=== PATIENT | male | born 2005 | race Caucasian/White ===

== ENCOUNTER 2023-09-28 22:51 | Emergency (ER) | payer BC, SELFPAY ==
[2023-09-28 23:03] VITALS: BP 128/86; PULSE 90; RESP 18; TEMP 36.9; O2SAT 100
--- NOTE | 2023-09-29 00:23 | ED.GENADULT ---
[facility] - General Adult General Chief complaint: Animal Bite Stated complaint: Dog bite Time Seen by Provider: 09/28/23 23:59 Source: patient Mode of arrival: ambulatory Limitations: no limitations History of Present Illness HPI narrative: This is a 18-year-old male who presents to the ED with chief complaint of dog bite injury that occurred just prior to arrival. Patient states that he was dog sitting for his friend's cousin. They entered the room and let the dog out. Reports that the dog was a [place] Jos[place] and immediately came after him and bit his right hand. Reports a small puncture wound to the right palmar thenar eminence. Denies any further site of pain or injury. States tetanus is up-to-date. States the dog is up-to-date on shots. Related Data Allergies Allergy/AdvReac Type Severity Reaction Status Date / Time No Known Allergies Allergy Unverified 09/28/23 23:10 Review of Systems Review of Systems: All systems as dictated in [facility] Past Medical History Medical History VIKKI (generalized anxiety disorder) Surgical History Surgical History History of appendectomy History of tonsillectomy and adenoidectomy Family History Family History Father Hypertension Social History Social History Smoking status: Never smoker Second hand tobacco smoke exposure: No Alcohol intake: never Substance use: never Substance use type: does not use Living arrangements: with family Occupation/Education: student Gender identity (if verbalized by the patient): Male Sexual Orientation (if Verbalized by the Patient): Straight or Heterosexual Exam Narrative: GENERAL: Well-appearing, well-nourished, and in no acute distress. HEAD: Normocephalic, atraumatic. EYES: PERRLA and EOMI. ENT: Nares clear, no rhinorrhea or epistaxis. Mucous membranes moist. Oropharynx without tonsillar hypertrophy exudate or other lesions. NECK: Supple. No adenopathy or masses. CHEST: No respiratory distress. Clear to auscultation. No wheezes rales or rhonchi HEART: Regular rate and rhythm. No murmur heard. Normal peripheral pulses. ABDOMEN: Soft, nontender, nondistended, normal active bowel sounds. MSK: Normal range of motion. No edema. SKIN: Small 1 cm shallow puncture wound to the right thumb thenar eminence. No bruising. Mild swelling. No active bleeding. NEURO: Alert and oriented x3. No focal deficits. PSYCH: Normal mood and affect. Course Vital Signs Vital signs: Vital Signs Temperature 98.4 F 09/28/23 23:03 Pulse Rate 90 09/28/23 23:03 Respiratory Rate 18 09/28/23 23:03 Blood Pressure 128/86 09/28/23 23:03 Pulse Oximetry 100 09/28/23 23:03 Oxygen Delivery Room Air 09/28/23 23:03 Temperature 98.4 F 09/28/23 23:03 Pulse Rate 84 09/29/23 01:01 Respiratory Rate 14 09/29/23 01:01 Blood Pressure 117/74 09/29/23 01:01 Pulse Oximetry 99 09/29/23 01:01 Oxygen Delivery Room Air 09/28/23 23:03 Medical Decision Making MDM Narrative Medical decision making narrative: This is a 18-year-old male who presents to the ED with chief complaint of dog bite injury to the right hand this evening. His tetanus status is up-to-date. The dog shots are up-to-date. Vitals are normal. Exam shows small superficial puncture wound to the right palmar thenar eminence. No other wounds noted. No bruising. Minimal tenderness. The wound was well cleaned and bandaged. Patient will be given prescription for Augmentin with first dose tonight. Strict instructions regarding keeping the area clean. Return precautions given and supportive measures from discussed. Patient is understanding and agreeable to plan for discharge and follow-up with PCP. Vital Signs Vital Signs
[2023-09-29] MEDS: AMOXICILLIN/CLAVULANATE K 875-125 MG TAB 1 TABLET PO (00:37)
[2023-09-29 01:01] VITALS: BP 117/74; PULSE 84; RESP 14; O2SAT 99
== END 2023-09-29 01:02 | disposition home or self-care (01) ==
PROVIDERS: Emergency Provider Physician Assistant; PCP Family Medicine
DX: S61.451A Open bite of right hand, initial encounter (principal); W54.0XXA Bitten by dog, initial encounter
CPT/HCPCS: 99283; A9270

== ENCOUNTER 2024-10-30 05:08 | Emergency (ER) | payer OTHER, SELFPAY ==
--- NOTE | ~2024-10-30 | CT_ITS ---
EXAMINATION: CT abdomen pelvis w con DATE: 10/30/2024 06:21 INDICATION: Upper abdominal pain, vomiting. History of appendectomy. TECHNIQUE: Computed tomography (CT) of the abdomen and pelvis was performed with 100 CC Omnipaque 350 intravenous contrast. Automated exposure control and iterative reconstruction technique were employe d. Exam dose: 295.35 mGy-cm total exam DLP. COMPARISON: 05/07/2017 abdominal ultrasound FINDINGS: The lung bases are clear. Normal heart size. No pericardial or pleural effusion. The liver, gallbladder, bile ducts, spleen, pancreas, pancreatic duct, and adrenal glands and kidneys are unremarkable. No urinary tract calculus or hydroureteronephrosis. The urinary bladder and prostate gland are unremarkable. Normal caliber of the abdominal aorta. No intraperitoneal or retroperitoneal or pelvic mass lesion or adenopathy or ascites. Status post appendectomy. There is air-fluid levels of the rectum and colon. No bowel dilatation, bowel wall thickening, pneuma tosis or intraperitoneal free air. The right testicle is in the inguinal canal. The left testicle is within the scrotal sac. Included skeletal structures are unremarkable. IMPRESSION: Status post appendectomy Air-fluid levels of the rectum and colon; no bowel obstruction or intraperitoneal free air. The findi ngs suggest enterocolitis or mild adynamic ileus Reviewed, dictated and finalized at [facility] Reviewed, dictated and finalized at [facility] P [employer] IMPRESSION: Status post appendectomy Air-fluid levels of the rectum and colon; no bowel obstruction or intraperitone al free air. The findings suggest enterocolitis or mild adynamic ileus
[2024-10-30 05:15] VITALS: BP 124/84; PULSE 110; RESP 16; TEMP 36.4; O2SAT 98
[2024-10-30 05:29] LABS: Hematocrit 44.6 % (42.0-52.0); Hemoglobin 16.4 g/dL (14.0-18.0); Mean Corpuscular HGB Conc 36.8 g/dl (32-36); Mean Corpuscular Hemoglobin 31.8 pg (26-34); Mean Corpuscular Volume 86.6 fl (80-100); Mean Platelet Volume 9.5 fl (7.4-10.4); Platelet Count Result 353 k/mm3 (150-375); Red Blood Count 5.15 M/mm3 (4.6-6.20); Red Cell Distribution Width 13.1 % (11.5-14.5); White Blood Count 20.2 K/mm3 (4.5-10.0)
--- NOTE | 2024-10-30 05:29 | ED_ITS ---
HPI - General Adult General Chief complaint: Abdominal Pain <Júnior Carty MD - Last Filed: 10/30/24 06:16> Stated complaint: abdominal pain, n/v <Júnior Carty MD - Last Filed: 10/30/24 06:16> Time Seen by Provider: 10/30/24 05:16 <Júnior Carty MD - Last Filed: 10/30/24 06:16> History of Present Illness HPI narrative: patient is a 19-year-old gentleman presents emergency department with chief complaint of abdominal pain nausea vomiting. Patient reports this evening started having multiple episodes of vomiting reports he down but unable to keep anything down reports he has prior history of an appendectomy. The patient rep orts he has pain throughout his abdomen reports that is not improved by anything patient reports no diarrhea <Júnior Carty MD - Last Filed: 10/30/24 06:16> Related Data Allergies/adverse reactions: Allergies Allergy/AdvReac Type Severity Reaction Status Date / Time No Known Allergies Allergy Unverified 02/17/24 14:46 <Júnior Carty MD - Last Filed: 10/30/24 06:16> Review of Systems Review of Systems: A 10 system review of systems was completed on the patient and is negative except for what is stated in the HPI. Nursing and ancillary documentation was reviewed. <Júnior Carty MD - Last Filed: 10/30/24 06:16> [facility] Past Medical History Medical History: Medical History VIKKI (generalized anxiety disorder) <Júnior Carty MD - Last Filed: 10/30/24 06:16> Surgical History Surgical History: Surgical History History of appendectomy History of tonsillectomy and adenoidectomy <Júnior Carty MD - Last Filed: 10/30/24 06:16> Family History Family History: Family History Father Hypertension <Júnior Carty MD - Last Filed: 10/30/24 06:16> Social History Social History: Social History Smoking status: Never smoker Second hand tobacco smoke exposure: No Alcohol intake: never Substance use: never Substance use type: does not use Living arrangements: with family Occupation/Education: student Gender identity (if verbalized by the patient): Male Sexual Orientation (if Verbalized by the Patient): Straight or Heterosexual <Júnior Carty MD - Last Filed: 10/30/24 06:16> Exam Narrative: GENERAL: Well-appearing, well-nourished, and in no acute distress. HEAD: Normocephalic, atraumatic. EYES: PERRLA and EOMI. ENT: Nares clear, no rhinorrhea or epistaxis. Mucous membranes moist. NECK: Supple. CHEST: Clear to auscultation. No respiratory distress. HEART: Regular rate and rhythm. No murmur heard. Normal peripheral pulses. ABDOMEN: Soft, nontender, nondistended, normal active bowel sounds. EXTREMITIES: Normal range of motion. No edema. SKIN: Warm, dry, no rash. NEURO: No focal deficits. Alert and oriented x3. PSYCH: Normal mood and affect. <Júnior Carty MD - Last Filed: 10/30/24 06:16> Course Course Emergency Course: Zych: 19-year-old male with nausea vomiting diarrhea x1 day who was signed out to me pending CT scan. CT scan showed gastroenteritis. Patient was re-evaluated and is now tolerating p.o.. Abdominal exam is benign vital signs are stable. Patient discharged with antiemetics and return precautions. <Carlos Hines MD - Last Filed: 10/30/24 10:48> Vital Signs Vital signs: Vital Signs Temperature 97.6 F 10/30/24 05:15 Pulse Rate 110 H 10/30/24 05:15 Respiratory Rate 16 10/30/24 05:15 Blood Pressure 124/84 10/30/24 05:15 Pulse Oximetry 98 10/30/24 05:15 Oxygen Delivery Room Air 10/30/24 05:15 Temperature 97.6 F 10/30/24 05:15 Pulse Rate 90 10/30/24 07:15 Respiratory Rate 18 10/30/24 07:15 Blood Pressure 129/85 10/30/24 07:15 Pulse Oximetry 99 10/30/24 07:15 Oxygen Delivery Room Air 10/30/24 05:15 <Júnior Carty MD - Last Filed: 10/30/24 06:16> Vital Signs Temperature 97.6 F 10/30/24 05:15 Pulse Rate 110 H 10/30/24 05:15 Respiratory Rate 16 10/30/24 05:15 Blood Pressure 124/84 10/30/24 05:15 Pulse Oximetry 98 10/30/24 05:15 Oxygen Delivery Room Air 10/30/24 05:15 Temperature 97.6 F 10/30/24 05:15 Pulse Rate 90 10/30/24 07:15 Respiratory Rate 18 10/30/24 07:15 Blood Pressure 129/85 10/30/24 07:15 Pulse Oximetry 99 10/30/24 07:15 Oxygen Delivery Room Air 10/30/24 05:15 <Carlos Hines MD - Last Filed: 10/30/24 10:48> Medical Decision Making MDM Narrative Medical decision making narrative: differential diagnosis includes gastroenteritis, gastritis, cholecystitis, pancreatitis laboratory studies were obtained on the patient showed white count of 20.2 electrolytes showed normal liver enzymes lipase was normal CT scan of the abdomen pelvis has been ordered <Júnior Carty MD - Last Filed: 10/30/24 06:16> Vital Signs Vital Signs: Vital Signs Temperature 97.6 F 10/30/24 05:15 Pulse Rate 110 H 10/30/24 05:15 Respiratory Rate 16 10/30/24 05:15 Blood Pressure 124/84 10/30/24 05:15 Pulse Oximetry 98 10/30/24 05:15 Oxygen Delivery Room Air 10/30/24 05:15 Temperature 97.6 F 10/30/24 05:15 Pulse Rate 90 10/30/24 07:15 Respiratory Rate 18 10/30/24 07:15 Blood Pressure 129/85 10/30/24 07:15 Pulse Oximetry 99 10/30/24 07:15 Oxygen Delivery Room Air 10/30/24 05:15 <Júnior Carty MD - Last Filed: 10/30/24 06:16> Vital Signs Temperature 97.6 F 10/30/24 05:15 Pulse Rate 110 H 10/30/24 05:15 Respiratory Rate 16 10/30/24 05:15 Blood Pressure 124/84 10/30/24 05:15 Pulse Oximetry 98 10/30/24 05:15 Oxygen Delivery Room Air 10/30/24 05:15 Temperature 97.6 F 10/30/24 05:15 Pulse Rate 90 10/30/24 07:15 Respiratory Rate 18 10/30/24 07:15 Blood Pressure 129/85 10/30/24 07:15 Pulse Oximetry 99 10/30/24 07:15 Oxygen Delivery Room Air 10/30/24 05:15 <Carlos Hines MD - Last Filed: 10/30/24 10:48> Lab Data Result diagrams: 10/30/24 05:23 10/30/24 05:23 <Júnior Carty MD - Last Filed: 10/30/24 06:16> Labs: Lab Results 10/30/24 10/30/24 Range/Units 05:23 07:30 WBC 20.2 H (4.5-10.0) K/mm3 RBC 5.15 (4.6-6.20) M/mm3 Hgb 16.4 (14.0-18.0) g/dL Hct 44.6 (42.0-52.0) % MCV 86.6 (80-100) fl MCH 31.8 (26-34) pg MCHC 36.8 H (32-36) g/dl RDW 13.1 (11.5-14.5) % Plt Count 353 (150-375) k/mm3 MPV 9.5 (7.4-10.4) fl Immature Gran % (Auto) Not Reportable Neut % (Auto) Not Reportable Lymph % (Auto) Not Reportable [place] % (Auto) Not Reportable Eos % (Auto) Not Reportable Baso % (Auto) Not Reportable Lymph # (Auto) Not Reportable [place] # (Auto) Not Reportable Eos # (Auto) Not Reportable Baso # (Auto) Not Reportable Abs Immat Gran (auto) Not Reportable Absolute Neuts (auto) Not Reportable Absolute Nucleated RBC Not Reportable Total Counted 100 Neutrophils % (Manual) 82 H (46-73) % Lymphocytes % (Manual) 17.0 L (18-44) % Monocytes % (Manual) 1 L (3-9) % Nucleated RBC % Not Reportable Abs Lymphs (Manual) 3.43 (1.1-4.5) K/mm3 Abs Monocytes (Manual) 0.20 (0.1-0.90) K/mm3 Atypical Lymphocytes Present Smudge Cells Present Platelet Estimate Increased (Adequate) Anisocytosis 1+ Schistocytes None seen Sodium 140 (137-145) mmol/L Potassium 3.6 (3.4-5.0) mmol/L Chloride 101 (98-107) mmol/L Carbon Dioxide 24 (22-30) mmol/L Anion Gap 15 H (4-12) mmol/L BUN 14 (9-20) mg/dL Creatinine 1.00 (0.7-1.3) mg/dL Estim Creat Clear Calc 105 ml/min Estimated GFR > 60 (59 - ) Glucose 133 H (65-110) mg/dL Calcium 10.0 (8.4-10.2) mg/dL Total Bilirubin 1.0 (0.2-1.3) mg/dL AST 27 (17-59) U/L ALT 17 (6-50) U/L Alkaline Phosphatase 104 (38-126) U/L Total Protein 9.0 H (6.3-8.2) g/dL Albumin 5.7 H (3.5-5.1) g/dL Lipase 61 (23-300) U/L Urine Color Yellow (Yellow) Urine Appearance Clear (Clear) Urine pH 6.0 (5.0-9.0) Ur Specific [place] > 1.045 H (1.001-1.035) Urine Protein Negative (Negative) mg/dL Urine Glucose (UA) Negative (Negative) mg/dL Urine Ketones 1+ H (Negative) mg/dL Ur Blood (Man) Negative (Negative) Urine Nitrate Negative (Negative) Urine Bilirubin Negative (Negative) Urine Urobilinogen 0.2 (<2.0) mg/dL Leukocyte Esterase Rfl Negative (Negative) POLA/UL <Júnior Carty MD - Last Filed: 10/30/24 06:16> Lab Results 10/30/24 10/30/24 Range/Units 05:23 07:30 WBC 20.2 H (4.5-10.0) K/mm3 RBC 5.15 (4.6-6.20) M/mm3 Hgb 16.4 (14.0-18.0) g/dL Hct 44.6 (42.0-52.0) % MCV 86.6 (80-100) fl MCH 31.8 (26-34) pg MCHC 36.8 H (32-36) g/dl RDW 13.1 (11.5-14.5) % Plt Count 353 (150-375) k/mm3 MPV 9.5 (7.4-10.4) fl Immature Gran % (Auto) Not Reportable Neut % (Auto) Not Reportable Lymph % (Auto) Not Reportable [place] % (Auto) Not Reportable Eos % (Auto) Not Reportable Baso % (Auto) Not Reportable Lymph # (Auto) Not Reportable [place] # (Auto) Not Reportable Eos # (Auto) Not Reportable Baso # (Auto) Not Reportable Abs Immat Gran (auto) Not Reportable Absolute Neuts (auto) Not Reportable Absolute Nucleated RBC Not Reportable Total Counted 100 Neutrophils % (Manual) 82 H (46-73) % Lymphocytes % (Manual) 17.0 L (18-44) % Monocytes % (Manual) 1 L (3-9) % Nucleated RBC % Not Reportable Abs Lymphs (Manual) 3.43 (1.1-4.5) K/mm3 Abs Monocytes (Manual) 0.20 (0.1-0.90) K/mm3 Atypical Lymphocytes Present Smudge Cells Present Platelet Estimate Increased (Adequate) Anisocytosis 1+ Schistocytes None seen Sodium 140 (137-145) mmol/L Potassium 3.6 (3.4-5.0) mmol/L Chloride 101 (98-107) mmol/L Carbon Dioxide 24 (22-30) mmol/L Anion Gap 15 H (4-12) mmol/L BUN 14 (9-20) mg/dL Creatinine 1.00 (0.7-1.3) mg/dL Estim Creat Clear Calc 105 ml/min Estimated GFR > 60 (59 - ) Glucose 133 H (65-110) mg/dL Calcium 10.0 (8.4-10.2) mg/dL Total Bilirubin 1.0 (0.2-1.3) mg/dL AST 27 (17-59) U/L ALT 17 (6-50) U/L Alkaline Phosphatase 104 (38-126) U/L Total Protein 9.0 H (6.3-8.2) g/dL Albumin 5.7 H (3.5-5.1) g/dL Lipase 61 (23-300) U/L Urine Color Yellow (Yellow) Urine Appearance Clear (Clear) Urine pH 6.0 (5.0-9.0) Ur Specific [place] > 1.045 H (1.001-1.035) Urine Protein Negative (Negative) mg/dL Urine Glucose (UA) Negative (Negative) mg/dL Urine Ketones 1+ H (Negative) mg/dL Ur Blood (Man) Negative (Negative) Urine Nitrate Negative (Negative) Urine Bilirubin Negative (Negative) Urine Urobilinogen 0.2 (<2.0) mg/dL Leukocyte Esterase Rfl Negative (Negative) POLA/UL <Carlos Hines MD - Last Filed: 10/30/24 10:48> Discharge Plan Discharge Clinical Impression: Gastroenteritis <Júnior Carty MD - Last Filed: 10/30/24 06:16> Patient Disposition: Home, Self-Care <Júnior Carty MD - Last Filed: 10/30/24 06:16> Condition: Stable <Júnior Carty MD - Last Filed: 10/30/24 06:16> Instructions: Antibiotic Form, Gastroenteritis (DC) <Júnior Carty MD - Last Filed: 10/30/24 06:16> Additional Instructions: please use Zofran for nausea, please drink plenty fluids UA bland diet. Return if you develop intractable nausea vomiting severe abdominal pain or fever condition is getting worse. <Júnior Carty MD - Last Filed: 10/30/24 06:16> Prescriptions: New ondansetron 4 mg tablet,disintegrating 4 mg PO Q8H PRN (Reason: nausea and vomiting) Qty: 30 0RF No Action fluoxetine 10 mg capsule 10 mg PO DAILY Qty: 90 3RF terbinafine HCl 250 mg tablet 250 mg PO DAILY Qty: 90 0RF <Júnior Carty MD - Last Filed: 10/30/24 06:16> Follow-up/Referrals: Mirza Trejo MD [Primary Care Provider] - <Júnior Carty MD - Last Filed: 10/30/24 06:16>
[2024-10-30 05:39] LABS: Alanine Aminotransferase 17 U/L (6-50); Albumin Level 5.7 g/dL (3.5-5.1); Alkaline Phosphatase 104 U/L (38-126); Anion Gap 15 mmol/L (4-12); Aspartate Amino Transferase 27 U/L (17-59); Blood Urea Nitrogen 14 mg/dL (9-20); Carbon Dioxide 24 mmol/L (22-30); Chloride 101 mmol/L (98-107); Estimated CRCL calculation 105 ml/min; Estimated Glomerular Filt Rate > 60; Glucose 133 mg/dL (65-110); Lipase 61 U/L (23-300); Potassium 3.6 mmol/L (3.4-5.0); Sodium 140 mmol/L (137-145)
[2024-10-30] MEDS: MORPHINE SULFATE (*CRX) 4 MG/ML INJ IV PUSH (05:47)
[2024-10-30] MEDS: DICYCLOMINE HCL INJ 20 MG/2 ML VIAL IM (05:47)
[2024-10-30] MEDS: SODIUM CHLORIDE 0.9% IV 1,000 ML 999 ML IV CONT (05:47)
[2024-10-30] MEDS: ONDANSETRON INJ 4 MG/2 ML VIAL IV PUSH (05:47)
[2024-10-30 05:49] LABS: Lymphocytes Absolute Manual 3.43 K/mm3 (1.1-4.5); Monocytes Percent Manual 1 % (3-9); Neutrophils Percent Manual 82 % (46-73); Total Cells Counted 100
[2024-10-30 05:50] LABS: Anisocytosis 1+; Atypical Lymphocytes Present; Platelet Estimate Increased (Adequate); Schistocytes None Seen; Smudge Cells PRESENT
[2024-10-30 07:15] VITALS: BP 129/85; PULSE 90; RESP 18; O2SAT 99
[2024-10-30 07:47] LABS: Add Urine Microscopic? NO; Appearance Urine Clear (Clear); Bilirubin Urine Negative (Negative); Blood Urine Negative (Negative); Color Urine Yellow (Yellow); Glucose Urine UA Negative (Negative); Ketones Urine 1+ mg/dL (Negative); Leukocyte Esterase Ur Negative LEU/UL (Negative); Nitrate Urine Negative (Negative); Protein Urine Negative (Negative); Specific Grav Ur > 1.045 (1.001-1.035); Urobilinogen Urine 0.2 mg/dL (<2.0)
[2024-10-30 11:12] VITALS: BP 111/67; PULSE 67; RESP 18; O2SAT 100
== END 2024-10-30 11:14 | disposition home or self-care (01) ==
PROVIDERS: Emergency Provider Emergency Medicine; PCP Family Medicine
DX: K52.9 Noninfective gastroenteritis and colitis, unspecified (principal); F41.1 Generalized anxiety disorder
CPT/HCPCS: 36415; 74177; 80053; 81003; 83690; 85025; 96361; 96372; 96374; 96375; 99284; J0500; J2270; J2405; J7030; Q9967